=== PATIENT | male | born 1955 | race Caucasian/White ===

== ENCOUNTER 2017-01-18 22:18 | Emergency (ER) | payer OTHER, BC ==
[~2017-01-18] VITALS: Ht 172.7 cm; Wt 77.8 kg
[2017-01-18 22:47] LABS: EOSINOPHIL (%) 3.6 % (0-5); EOSINOPHIL COUNT 0.1 K/uL (0-0.3); HEMATOCRIT 14.9 % (38.0-50.0); IMMATURE GRANULOCYTE (%) 0.6 % (0.0-0.7); INSTRUMENT ABS NEUTROPHIL CT 1.1 K/uL; LYMPHOCYTE COUNT 0.3 K/uL (1.0-2.8); MCHC 32.2 G/DL (30.0-36.0); MCV 105.7 FL (86-99); MEAN PLAT.VOLUME 11.5 uM^3 (9.0-12.4); MONOCYTE (%) 10.8 % (3-12); MONOCYTE COUNT 0.2 K/uL (0-0.8); NEUTROPHIL (%) 66.9 % (45-76); NEUTROPHIL COUNT 1.1 K/uL (1.8-6.4); PLATELET COUNT 58 K/uL (156-360); RBC DIS.WIDTH-CV 12.5 % (11.8-14.6); RED BLOOD COUNT 1.41 M/uL (4.00-5.50)
[2017-01-18 22:48] LABS: INTER. NORMALIZED RATIO 3.1; PROTHROMBIN TIME 35.5 SEC (10.2-12.9); WHITE BLOOD COUNT 1.7 K/uL (4.1-10.2)
[2017-01-18 22:50] LABS: PTT 91.1 SEC (25-37)
[2017-01-18 23:07] LABS: TROP-I INTERPRETATION NEGATIVE; TROPONIN-I < 0.01 ng/mL (0.0-0.30)
[2017-01-19 00:27] LABS: AMYLASE 169 IU/L (1-118); CHLORIDE 103 mEq/L (99-109); POTASSIUM 4.5 mEq/L (3.7-5.4); SODIUM 139 mEq/L (136-147)
[2017-01-19 00:29] LABS: GLUCOSE 108 mg/dL (70-99)
[2017-01-19 00:30] LABS: ANION GAP 11 MEQ/L (2-14)
[2017-01-19 00:32] LABS: SERUM ETHYL ALCOHOL < 10 mg/dL
[2017-01-19 00:33] LABS: GFR ESTIMATE (CALCULATED) > 59 mL/min/
[2017-01-19 00:34] LABS: UREA NITROGEN (BUN) 7 mg/dL (9-23)
[2017-01-19 00:36] LABS: LIPASE 175 U/L (1.0-51.0)
[2017-01-19 05:46] VITALS: BP 00/00
== END 2017-01-19 02:32 ==
LOC: EDBD 22:18 → EME 22:18
PROVIDERS: Emergency Medicine
PROC: 5A0935Z Assistance with Respiratory Ventilation, Less than 24 Consecutive Hours (ICD-10-PCS; principal; 2017-01-19)
DX: I46.9 Cardiac arrest, cause unspecified (principal); I21.3 ST elevation (STEMI) myocardial infarction of unspecified site; J18.9 Pneumonia, unspecified organism; D64.9 Anemia, unspecified; G12.21 Amyotrophic lateral sclerosis; I25.2 Old myocardial infarction; I10 Essential (primary) hypertension; C90.00 Multiple myeloma not having achieved remission; G82.20 Paraplegia, unspecified; Z88.8 Allergy status to other drugs, medicaments and biological substances
CPT/HCPCS: 36600; 71010; 80048; 80048 91; 81003; 82150; 83690; 84484; 85025; 85610; 85730; 86850; 86900; 86901; 87070; 87077; 87185; 87205; 93005; 94002; 99281; 99285; G0480; J1644; J2270; J7030